=== PATIENT | female | born 1995 | race Caucasian/White ===

== ENCOUNTER 2017-06-21 08:56 | Emergency (ER) | payer BC, OTHER ==
[~2017-06-21] VITALS: Ht 160 cm; Wt 89.7 kg
[2017-06-21 09:01] VITALS: TEMP 36.6; Ht 160 cm; Wt 89.7 kg
[2017-06-21] MEDS ORDERED: MoRPHine SULFATE 10 MG/ML CARP/VIAL ONE (09:07)
[2017-06-21] MEDS ORDERED: ONDANSETRON INJ 2 MG/ML 2 ML VIAL ONE (09:07)
[2017-06-21] MEDS ORDERED: BCPILLS PO (09:13)
[2017-06-21] MEDS ORDERED: MoRPHine SULFATE 10 MG/ML CARP/VIAL IV STA (09:37)
[2017-06-21] MEDS ORDERED: MoRPHine SULFATE 2 MG/ML CARP ONE (09:45)
[2017-06-21] MEDS ORDERED: MoRPHine SULFATE 4 MG/ML 1 ML CARP\\VIAL ONE (09:46)
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
[2017-06-21] MEDS ORDERED: ONDANSETRON 4MG OD TAB PO ONE (11:00)
[2017-06-21 11:15] VITALS: BP 125/86; PULSE 74; O2SAT 99
== END 2017-06-21 11:25 | disposition home or self-care (01) ==
LOC: EDBD 08:56 → C.EDB 08:58
DX: S93.401A Sprain of unspecified ligament of right ankle, initial encounter (principal); S50.811A Abrasion of right forearm, initial encounter; S50.812A Abrasion of left forearm, initial encounter; M25.512 Pain in left shoulder; V47.5XXA Car driver injured in collision with fixed or stationary object in traffic accident, initial encounter; Y93.89 Activity, other specified; Y92.410 Unspecified street and highway as the place of occurrence of the external cause; Z79.3 Long term (current) use of hormonal contraceptives

== ENCOUNTER 2019-11-03 02:23 | Inpatient (IN) ==
[2019-11-03] MEDS ORDERED: OXYTOCIN 30 UNITS/500 ML BAG IV PRN ×2 (04:12→08:12)
[2019-11-03] MEDS ORDERED: LACTATED RINGER'S 1,000 ML IV ONE (04:21)
[2019-11-03 04:24] LABS: Basophils # (auto) 0.02 K/uL (0-0.2); Basophils % (auto) 0.1 %; Eosinophils # (auto) 0.14 K/uL (0-0.5); Hematocrit (blood only) 35.1 % (37-47); Hemoglobin 11.3 g/dL (12.0-16.0); Immature Granulocytes # (auto) 0.06 K/uL (0.00-0.02); Immature Granulocytes % (auto) 0.4 %; Lymphocytes # (auto) 3.29 K/uL (1.2-3.4); Lymphocytes % (auto) 24.7 %; Mean Corpuscular Hemoglobin 25.9 pg (25-34); Mean Corpuscular Hgb Conc 32.2 g/dL (32-36); Mean Corpuscular Volume 80.5 fL (80-100); Mean Platelet Volume 8.9 fL (7.4-10.4); Monocytes # (auto) 1.13 K/uL (0.11-0.59); Monocytes % (auto) 8.5 %; Neutrophils % (auto) 65.3 %; Platelet Count 338 K/uL (130-400); RDW Coefficient of Variation 13.7 % (11.5-14.5); RDW Standard Deviation 39.6 fL (36.4-46.3); Red Blood Count 4.36 M/uL (4.2-5.4); White Blood Count 13.34 K/uL (4.8-10.8)
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
--- NOTE | 2019-11-03 08:25 | Obstetrical Progress Note ---
Date of Service November 03, 2019 Assessment & Plan Admission and Anticipated Discharge Date Admission Date: November 03, 2019 Subjective doing well Physical Exam Constitutional: WD/WN, vitals as above Genitourinary: OB Exam Abdomen: + heart tones, + vertex and + irregular contractions Manual OB Exam: + cervical dilation 2 cm, + cervical effacement 50%, + station high and + amniotic fluid clear OB Exam Monitor Tracing: + external FHT monitor used, + external uterine monitor used and + category I Will start Oxytocin to augment contractions Results & Data ([facility]) Vital Signs (Past 12 Hours) Vital Signs Temp Pulse Resp BP 11/03/19 08:11 71 151/84 H 11/03/19 08:10 69 165/85 H 11/03/19 08:08 36.5 C 20 11/03/19 07:07 36.5 C 70 20 138/79 11/03/19 06:00 36.7 C 18 11/03/19 04:19 36.8 C 64 18 126/85 11/03/19 02:51 18 126/79 11/03/19 02:50 92 H 137/91 11/03/19 02:40 36.5 C 92 H 18 138/85
[2019-11-03] MEDS: LACTATED RINGER'S 1,000 ML IV PRN ×4 (08:51→20:11)
[2019-11-03] MEDS ORDERED: fentaNYL citrate 100 MCG/2 ML VIAL ONE (12:52)
[2019-11-03] MEDS ORDERED: fentaNYL 2MCG/ML ROPIV 1.25MG/ML 100 ML BAG EPI ONE (12:52)
[2019-11-03] MEDS ORDERED: ePHEDrine sulfate 50 MG/ML AMP ONE (12:52)
[2019-11-03] MEDS ORDERED: BUPIVACAINE 0.25% 30 ML VIAL ONE (12:52)
[2019-11-03] MEDS ORDERED: NALOXONE HCL 1 MG in SODIUM CHLORIDE 0.9% 1000ML 1,000 ML IV PRN (13:39)
[2019-11-03] MEDS ORDERED: ONDANSETRON INJ 2 MG/ML 2 ML VIAL IV PRN (13:39)
[2019-11-03] MEDS ORDERED: fentaNYL 2MCG/ML ROPIV 1.25MG/ML 100 ML BAG EPI PRN (13:39)
[2019-11-03] MEDS ORDERED: NALOXONE HCL 0.4 MG/1 ML VIAL/CARP IV PRN (13:39)
[2019-11-03] MEDS ORDERED: DiphenhydrAMINE HCL 50 MG/ML VIAL IV PRN (13:39)
[2019-11-03] MEDS ORDERED: ePHEDrine sulfate 50 MG/ML AMP IV PRN (13:39)
[2019-11-03] MEDS ORDERED: NALBUPHINE HCL INJ 10 MG/ML AMP IV PRN (13:39)
--- NOTE | 2019-11-03 13:39 | Anesthesiology Consultation ---
Date of Service November 03, 2019 Assessment & Plan (1) Encounter for pre-operative examination: Chart Review Chart Review: Acceptable Risk for Surgery and Patient NOT seen in Pre Admission Testing Consults Requested none ASA ASA2 Proposed Anesthesia Anesthesia Type: Labor Epidural Risk / Benefits Reviewed With: PT / POA / Parent / Guardian, Accepts Plan and Informed Consent Obtained History Height/Weight Height: 5 ft 4 in Weight: 101.151 kg Allergies Allergy/AdvReac Type Severity Reaction Status Date / Time No Known Allergies Allergy Mild Verified 09/08/19 22:54 Medications Home Medications Medication Instructions Recorded Confirmed Last Taken PNV cmb#95-ferrous fumarate-FA 1 tab PO DAILY 09/08/19 11/03/19 1 Day Ago [] ~11/02/19 Active Medications Generic Name Dose Route Start Last Admin Trade Name Freq PRN Reason Stop Dose Admin Lactated Ringer's 1,000 mls @ 125 mls/hr 11/03/19 04:12 11/03/19 13:39 Lr IV 11/05/19 04:11 125 mls/hr .Q8H PRN Administration L&D Protocol Protocol Oxytocin 30 units in 500 mls @ 7 mls/hr 11/03/19 08:12 11/03/19 12:30 Pitocin IV 11/05/19 08:11 0.42 units/hr .Q24H PRN 7 mls/hr Labor Induction/Augmentation Titration Protocol 0.42 UNITS/HR NPO Date Last Intake of Fluids: 11/03/19 Time Last Intake of Fluids: 12:00 Date Last Intake of Solids: 11/02/19 Time Last Intake of Solids: 21:00 Past Medical History Medical History Abnormal Pap smear of cervix in 2013 Repeat pap WNL Depression Stopped taking Prozac with knowledge of Migraines PCOS (polycystic ovarian syndrome) Exercise / Class Metabolic Activity II 4-5 Yardwork/Stairs/Walk up hill Past Family History Family History Grandmother (Maternal) Breast cancer Hypertension Thyroid disease Grandfather (Maternal) Prostate cancer Brother Diabetes Father Endocrine disorder Hypertension Other No significant family history Past Anesthesia History No Hx of Anesthesia Complications and No Family Hx of Anesthesia Complications History of PONV No Hx of PONV and No Hx of Motion Sickness Social History Smoking Status: Never smoker Hx Alcohol Use: No Hx Substance Use: No substance use type: does not use Physical Exam Vital Signs Last Vital Signs Temp 36.7 C 11/03/19 12:07 Pulse 79 11/03/19 13:36 Resp 20 11/03/19 12:07 BP 139/72 11/03/19 13:36 Pulse Ox 99 11/03/19 13:32 ENMT Mouth: no dentition abnormality Thyromental Distance: > or= 3.5 Finger Breadths Mallampati Class: II Neck normal visual inspection Respiratory normal respiratory effort Auscultation: lungs clear to auscultation bilaterally Cardiovascular Rate/Rhythm: regular rate and regular rhythm Psychiatric Orientation: alert Testing Laboratory Results 11/03/19 03:29
--- NOTE | 2019-11-03 17:35 | Obstetrical Progress Note ---
Date of Service November 03, 2019 Assessment & Plan Admission and Anticipated Discharge Date Admission Date: November 03, 2019 Physical Exam Genitourinary: OB Exam Abdomen: + vertex and + regular contractions Manual OB Exam: + cervical dilation 8 cm, + cervical effacement, + station -1 and + amniotic fluid clear OB Exam Monitor Tracing: + external FHT monitor used, + external uterine monitor used and + category I Results & Data ([facility]) Vital Signs (Past 12 Hours) Vital Signs Temp Pulse Resp BP Pulse Ox 11/03/19 17:32 78 100 11/03/19 17:27 63 100 11/03/19 17:22 65 100 11/03/19 17:20 63 125/65 11/03/19 17:17 66 100 11/03/19 17:12 67 100 11/03/19 17:07 82 100 11/03/19 17:06 61 116/57 L 11/03/19 17:02 64 100 11/03/19 16:57 72 100 11/03/19 16:52 66 100 11/03/19 16:50 76 119/60 11/03/19 16:47 67 99 11/03/19 16:42 62 99 11/03/19 16:37 59 L 98 11/03/19 16:36 60 117/60 11/03/19 16:32 70 99 11/03/19 16:27 64 100 11/03/19 16:22 65 100 11/03/19 16:21 75 108/56 L 11/03/19 16:17 61 81 L 11/03/19 16:12 86 99 11/03/19 16:09 72 91 11/03/19 16:07 79 100 11/03/19 16:05 74 121/59 L 11/03/19 16:02 63 100 11/03/19 15:57 77 100 11/03/19 15:56 69 91 11/03/19 15:52 59 L 100 11/03/19 15:49 66 128/64 11/03/19 15:47 60 100 11/03/19 15:42 65 100 11/03/19 15:37 70 100 11/03/19 15:35 62 130/62 11/03/19 15:32 81 100 11/03/19 15:27 74 100 11/03/19 15:22 69 99 11/03/19 15:20 61 116/60 11/03/19 15:17 62 99 11/03/19 15:12 66 99 11/03/19 15:07 63 99 11/03/19 15:04 63 116/61 11/03/19 15:02 65 99 11/03/19 14:57 65 99 11/03/19 14:52 67 99 11/03/19 14:50 36.4 C L 96 H 20 123/69 11/03/19 14:47 68 100 11/03/19 14:42 69 100 11/03/19 14:37 86 100 11/03/19 14:35 75 129/73 11/03/19 14:32 85 99 11/03/19 14:27 71 100 11/03/19 14:22 96 H 100 11/03/19 14:17 86 99 11/03/19 14:12 89 98 11/03/19 14:07 69 98 11/03/19 14:02 69 100 11/03/19 14:00 36.4 C L 70 20 120/59 L 11/03/19 13:57 86 100 11/03/19 13:52 81 100 11/03/19 13:47 81 100 11/03/19 13:42 107 H 100 11/03/19 13:40 74 147/68 H 11/03/19 13:38 72 140/72 11/03/19 13:37 71 99 11/03/19 13:36 79 139/72 11/03/19 13:34 64 148/77 H 11/03/19 13:32 64 154/83 H 99 11/03/19 13:27 68 99 11/03/19 13:22 66 100 11/03/19 13:17 66 100 11/03/19 13:12 66 100 11/03/19 13:07 62 100 11/03/19 13:02 68 100 11/03/19 13:01 67 160/90 H 11/03/19 12:58 70 175/97 H 11/03/19 12:57 67 99 11/03/19 12:07 36.7 C 72 20 132/82 11/03/19 11:33 36.7 C 68 20 126/81 11/03/19 10:12 36.5 C 75 18 141/91 H 11/03/19 08:11 71 151/84 H 11/03/19 08:10 69 165/85 H 11/03/19 08:08 36.5 C 20 11/03/19 07:07 36.5 C 70 20 138/79 11/03/19 06:00 36.7 C 18
[2019-11-03] MEDS ORDERED: Nursing to Pharmacy Communication SCH (19:45)
--- NOTE | 2019-11-03 23:58 | Delivery Summary ---
Vaginal Delivery Summary Date of Service November 03, 2019 Vaginal Delivery Summary Delivery Note live female DENITA over intact perineum with Apgars 8/9 weight pending. Cord blood obtained followed by spontaneous delivery of intact placenta. No tears. EBL 200 ml. Final sponge and instrument count are correct. Mom and baby stable.
[2019-11-04] MEDS ORDERED: SUPERCREAM 0.870% 15 GM JAR EXT PRN (00:41)
[2019-11-04] MEDS ORDERED: ACETAMINOPHEN 325 MG TAB PO PRN (00:41)
[2019-11-04] MEDS ORDERED: DIPHTHERIA/TETANUS/PERTUSSIS 0.5 ML SYR/VIAL IM ONE (00:41)
[2019-11-04] MEDS ORDERED: bisacodyL 10 MG SUPP PR PRN (00:41)
[2019-11-04] MEDS ORDERED: HYDROCORTISONE ACETATE 25 MG SUPP PR PRN (00:41)
[2019-11-04] MEDS ORDERED: OXYTOCIN 30 UNITS/500 ML BAG IV PRN (00:41)
[2019-11-04] MEDS ORDERED: BENZOCAINE 20% AER SPR 82.5 GM CAN EXT PRN (00:41)
[2019-11-04] MEDS: IBUPROFEN 600 MG TAB PO PRN ×2 (00:55→08:09)
[2019-11-04 06:36] LABS: Hematocrit (blood only) 33.2 % (37-47); Hemoglobin 11.1 g/dL (12.0-16.0); Mean Corpuscular Hemoglobin 26.6 pg (25-34); Mean Corpuscular Hgb Conc 33.4 g/dL (32-36); Mean Corpuscular Volume 79.6 fL (80-100); Platelet Count 337 K/uL (130-400); RDW Coefficient of Variation 13.9 % (11.5-14.5); RDW Standard Deviation 39.4 fL (36.4-46.3); Red Blood Count 4.17 M/uL (4.2-5.4); White Blood Count 28.77 K/uL (4.8-10.8)
[2019-11-04] MEDS ORDERED: PRENATAL VITAMIN 1 TAB PO SCH (08:00)
[2019-11-04] MEDS ORDERED: DOCUSATE SODIUM 100 MG CAP PO SCH (08:00)
[2019-11-04] MEDS ORDERED: FERROUS SULFATE 325 MG TAB PO SCH (08:00)
[2019-11-04] MEDS ORDERED: NON-FORMULARY MEDICATION (Pnv Cmb#95-Ferrous Fumarate-Fa [Prenatal] 1 TAB) PO SCH (09:00)
--- NOTE | 2019-11-04 09:00 | Anesthesia Procedure Note ---
Date of Service November 04, 2019 Anesthesia Post Epidural Note Vital Signs Vital Signs: Temp Pulse Resp BP Pulse Ox 36.8 C 73 18 118/72 97 11/04/19 03:20 11/04/19 03:20 11/04/19 03:20 11/04/19 03:20 11/04/19 03:20 Pain Intensity Bilateral Abdomen: Pain Intensity: 8 Bilateral Head: Pain Intensity: 3 Notes Mental Status: alert / awake / arousable and participated in evaluation Patient Amnestic to Procedure: No Nausea / Vomiting: adequately controlled Pain: adequately controlled Airway Patency, RR, SpO2: stable & adequate BP & HR: stable & adequate Hydration State: stable & adequate Neuraxial Anesthesia: was administered and sensory block is resolving Anesthetic Complications: no major complications apparent and Pt Satisfied with anesthetic care Epidural: Removed without complications and With tip intact
--- NOTE | 2019-11-04 11:10 | Obstetrical Progress Note ---
Date of Service November 04, 2019 Assessment & Plan (1) Normal course: PPD #1 pt doing well is being transferred to [facility]. Mom wants to be discharged today D/C home with instructions Results & Data Vital Signs (Past 12 Hours) Vital Signs Temp Pulse Pulse Resp BP BP Pulse Ox 11/04/19 08:35 36.6 C 74 16 129/79 98 11/04/19 03:20 36.8 C 73 18 118/72 97 11/04/19 02:10 36.9 C 18 11/04/19 02:09 36.9 C 77 16 118/65 11/04/19 01:54 85 118/67 11/04/19 01:39 89 117/65 11/04/19 01:10 18 11/04/19 00:54 88 129/66 11/04/19 00:40 18 11/04/19 00:39 91 H 129/62 11/04/19 00:24 82 119/60 11/04/19 00:10 36.4 C L 16 11/04/19 00:09 98 H 133/61 11/03/19 23:57 96 H 139/65 11/03/19 23:47 102 H 97 11/03/19 23:42 150 H 96 11/03/19 23:38 129 H 93 11/03/19 23:36 122 H 92 11/03/19 23:32 116 H 93 11/03/19 23:31 106 H 95 11/03/19 23:26 122 H 94 11/03/19 23:23 117 H 142/72 H 11/03/19 23:21 128 H 95 11/03/19 23:16 106 H 96 11/03/19 23:11 146 H 99
[2019-11-04] MEDS ORDERED: bisacodyL 5 MG TABEC PO SCH (20:00)
--- NOTE | 2019-11-11 04:07 | History and Physical Report ---
DATE OF ADMISSION: 11/03/2019 REASON FOR ADMISSION: Term in labor. HISTORY OF PRESENT ILLNESS: The patient is a 24-year-old female, admitted to Labor and Delivery. The patient is a patient seen by Kenyatta Barth. Her EDC is 11/18/2019. She is 37+ weeks, admitted in labor. She had spontaneous rupture of membranes at 0300, found to be grossly ruptured. heart tones were category 1. Contractions minimal. Her cervix at that time was 2, 50, -2. Bedside ultrasound revealed vertex. PAST MEDICAL HISTORY: Includes history of constipation, megacolon, headache history, PCOS, class 2 obesity and migraine headaches. SOCIAL HISTORY: Denies smoking, alcohol or drug use. FAMILY HISTORY: Noncontributory. REVIEW OF SYSTEMS: Negative. ALLERGIES: No known allergies. MEDICATIONS: Unisom, Tylenol and vitamins. PHYSICAL EXAMINATION: HEENT: Within normal limits. LUNGS: Clear to auscultation. COR: Regular rate and rhythm. ABDOMEN: Soft, gravid. heart tone category 1. CERVICAL EXAMINATION: As noted. EXTREMITIES: Within normal limits. NEUROLOGIC: Intact. ASSESSMENT AND PLAN: Term in labor. Anticipate normal delivery.
== END 2019-11-04 13:20 | disposition home or self-care (01) | DRG 807 ==
LOC: 4S1 02:23 → 4S2 11-04 03:10